=== PATIENT | male | born 1985 | race Caucasian/White ===

== ENCOUNTER 2019-08-08 06:25 | Inpatient (IN) | payer SELFPAY ==
[2019-08-08] VITALS (77 sets, daily range): BP systolic 53–164; BP diastolic 21–91; PULSE 56–122; RESP 9–25; TEMP 36.8–37.3; O2SAT 83–100
--- NOTE | 2019-08-08 | DI.US_ITS ---
EXAM: US ABDOMEN INDICATION: RUQ pain, elevated LFTs COMPARISON: No exams were available for comparison TECHNIQUE: Ultrasound abdomen performed using standard protocol FINDINGS: Abdominal ultrasound was performed according to the usual protocol. The liver is normal in size and shape. No focal hepatic lesion seen. There is no evidence of cholelithiasis or biliary dilatation. No gallbladder wall thickening or peric holecystic fluid collection. Pancreas appears intact as visualized. Spleen is unremarkable in appearance with no focal lesion. Kidneys are normal in size and shape. No renal mass, hydronephrosis, or nephrolithiasis. Abdominal aorta and IVC are of normal diameter. IMPRESSION: Negative abdominal ultrasound .
--- NOTE | 2019-08-08 | DI.RAD_ITS ---
EXAM: XR CHEST 2V PA LATERAL CLINICAL HISTORY: R rib pain TECHNIQUE: 2D digital imaging was performed. COMPARISON: No exams were available for comparison FINDINGS: The heart is not enlarged. The lungs are clear and well expanded. No pleural effusion seen. Mediastin al contours appear intact. IMPRESSION: Normal chest
--- NOTE | 2019-08-08 06:36 | ED.GENADUL_ITS ---
Discharge Plan Disposition Patient Disposition: [facility] INPATIENT Condition: Poor Discharge Details Chief Complaint: ETOHWithdr Clinical Impression: Alcohol withdrawal Primary Care Provider: None,None ED Provider: Kodi Teixeira Medical Decision Making Patient presenting with complaint of alcohol withdrawal and anxiety. Spent the night in the drunk tank at [facility]. Reports history of alcohol withdrawal seizures. Reportedly drinks a gallon of liquor a day. Hypertensive with tremor. Will initiate CIWA scoring. Patient requesting detox though I am not convinced he will follow through with this. IV established fluids started. Thiamine and folate ordered orally. 1 mg Ativan IV for now. Laboratory studies ordered. Attempt to obtain records from [place]. 7:30 - Patient scored up over 20 for CIWA and given a total of 2mg Ativan IV. Labs show normal CBC. Chemistries okay except low magnesium which is 1.3. Liver function was elevated transaminases and bilirubin consistent with alcohol abuse. Alcohol level is 0. Will repeat CIWA and dose appropriately. 8:00 -repeat CIWA score still over 20. Another 2 mg Ativan given. Case discussed with hospitalist. Patient accepted to ICU for alcohol withdrawal. Lab Data Lab results reviewed: Yes I reviewed the patient's lab results. ECG Data Attestation: I personally reviewed and interpreted this ECG (s) as follows: Prior ECG tracings: not available for review Interpretation: Undetermined rhythm. Probably sinus rhythm with ectopic atrial rhythm given 2 morphologically different P waves. Normal interval and axis. No ST changes. HPI General Mode of arrival: EMS . Date/Time Provider Initiated Documentation: 08/08/19 06:25 . Limitations to Documentation: no limitations . Information obtained by: patient and RN notes reviewed . HPI Narrative: Patient is brought in by EMS from [facility] with complaint of alcohol detox. Somehow, patient ended up in protective custody at the [facility]. He was apparently transported there by [place] [employer] after he left [facility]. Patient is not really clear on his recollection of the events from yesterday. States that he is homeless but does have a job. Drinks about a gallon of liquor a day. Denies drug use but has history of substance abuse. Has history of multiple prior detox and rehab admissions. Currently on no medications. Feeling very anxious and shaky. Reports history of withdrawal seizures. Has some bruising and scrapes but is not sure how they occurred. Denies fever, cough, chest pain, shortness of breath, abdominal pain. Related Data Allergies Allergy/AdvReac Type Severity Reaction Status Date / Time No Known Allergies Allergy Unverified 08/08/19 06:30 General Stated Complaint: ETOHWithdr NEPTALI: 2 Review of Systems Narrative: 11/27 Review of Systems completed and is negative except as stated above in HPI (Systems reviewed: Const, Eyes, ENT, Resp, CV, GI, , MSK, Skin, Neuro) [facility] Medical History (Updated 08/08/19 @ 08:03 by Kodi Texieira MD) Alcoh dep NEC/NOS, unspec (Chronic) Alcohol withdrawal seizure (Chronic) Depression (Chronic) Social History Smoking/Tobacco Use Status: Current-Occasional Tobacco Type: smokeless tobacco Alcohol Intake: current Alcohol Intake frequency: 3 or more drinks per day Drug use: Current Sobriety Substance use type: former substance user Exam Narrative Exam Narrative: Vitals: Afebrile. Hypertensive. Room air pulse ox normal. Const: WDWN male in NAD. HEENT: Normocephalic. Abrasion to bridge of nose. Eyes: PERRL and EOMI Neck: Supple. Trachea midline. Lungs: Normal respiratory effort. Cor: Good radial pulses. GI: Soft. NT/ND. No guarding or rebound. Neuro: A+O x 3. Normal speech, gait. Cranial nerves II - XII grossly intact. No gross motor or sensory deficit. Tremor present. Ext: No C/C/E. Skin: Warm and dry without rash. Course Vital Signs Vital signs: Vital Signs Temperature 98.4 F 08/08/19 06:26 Pulse 88 08/08/19 06:26 Respiratory Rate 16 08/08/19 06:26 Blood Pressure 146/79 H 08/08/19 06:26 Pulse Oximetry 96 08/08/19 06:26 Temperature 98.4 F 08/08/19 06:26 Temperature Source Skin 08/08/19 06:26 Pulse 88 08/08/19 06:26 Respiratory Rate 16 08/08/19 06:26 Respiratory Effort Non-Labored 08/08/19 06:32 Blood Pressure 146/79 H 08/08/19 06:26 Blood Pressure Position Sitting 08/08/19 06:26 Pulse Oximetry 96 08/08/19 06:26 Oxygen Delivery Method Room Air 08/08/19 06:26 Oxygen Flow Rate 0 08/08/19 06:26 Critical Care Time Critical Care Time Critical Care Time: Yes Total Critical Care Time: 60 Attestation: Upon my evaluation, this patient had a high probability of imminent or life- threatening deterioration, which required my direct attention, intervention, and personal management. I have personally provided minutes of critical care time exclusive of time spent on separately billable procedures. Time includes review of laboratory data, radiology results, discussion with consultants, and monitoring for potential decompensation. Interventions were performed as documented above.
[2019-08-08 06:55] LABS: Abs Immature Grans 0.01 k/cumm (0.0-0.09); Absolute Basophil Count 0.04 k/cumm (0.0-0.2); Absolute Eosinophil Count 0.03 k/cumm (0.0-0.7); Absolute Lymphocyte Count 0.83 k/cumm (1.2-3.4); Absolute Neutrophil Count 8.05 k/cumm (1.2-6.7); Basophils % 0.4; Eosinophils % 0.3; HCT 42.5 % (40.0-50.0); HGB 14.9 g/dL (13.5-17.5); Immature Grans % 0.1 %; Lymphocytes % 8.6; Mean Corp. HGB Concentration 35.1 g/dL (32.0-36.0); Mean Corpuscular Volume 85.5 fL (80-95); Mean Platelet Volume 9.2 fL (8.0-11.0); Monocytes % 7.2; Neutrophils % 83.4; Platelet Count 161 x1000/uL (130-400); RBC 4.97 m/cumm (4.50-6.00); RBC Distribution Width 12.7 % (11.8-14.1); White Blood Cell Count 9.66 k/cumm (4.4-10.8)
[2019-08-08] MEDS: Normal Saline 1,000 ML 1000 ML IV (06:59)
[2019-08-08] MEDS: LORazepam 2 MG/ML VIAL 1 MG IVP ×2 (07:00→07:10)
[2019-08-08] MEDS: Folic Acid 1 MG TAB PO (07:02)
[2019-08-08] MEDS: Thiamine 100 MG TAB PO (07:02)
[2019-08-08 07:08] LABS: ALT 159 U/L (16-63); AST 122 U/L (15-37); Alkaline Phosphatase 56 U/L (46-116); Anion Gap 12.7 mmol/L (3-11); BUN 17 mg/dL (7-18); Bilirubin, Total 4.4 mg/dL (0.2-1.0); CO2 26.3 mmol/L (21.0-32.0); CREATININE 0.92 mg/dL (0.70-1.30); Calcium 8.5 mg/dL (8.5-10.1); Chloride 99 mmol/L (98-107); Glucose 85 mg/dL (74-106); Lipase 91 U/L (73-393); Magnesium 1.3 mg/dL (1.8-2.4); Potassium 3.6 mmol/L (3.5-5.1); Sodium 138 mmol/L (136-145); Total Protein 6.9 g/dL (6.4-8.2)
[2019-08-08 07:15] LABS: ETHANOL BLOOD < 3.0 mg/dL (<3)
[2019-08-08] MEDS: MAGNESIUM SULFATE 2 GM/50 ML BAG IVPB ×2 (07:46→11:26)
[2019-08-08] MEDS: LORazepam 2 MG/ML VIAL IVP ×7 (08:02→23:30)
[2019-08-08 08:22] LABS: *AMPHETAMINES SCREEN URINE Negative (Negative); *BARBITURATES SCREEN URINE Negative (Negative); *BENZODIAZEPINES SCREEN URINE POSITIVE (Negative); Cannabinoids THC POSITIVE (Negative); Cocaine Screen,Urine Negative (Negative); METHADONE URINE SCREEN Negative (Negative); OPIATES URINE SCREEN Negative (Negative)
[2019-08-08 08:23] LABS: Tricyclic Antidepressants Negative (Negative)
[2019-08-08 09:11] LABS: Prothrombin Time 10.4 sec (9.3-11.0)
[2019-08-08] MEDS: Normal Saline 1,000 ML 150 ML IV ×3 (09:24→22:53)
--- NOTE | 2019-08-08 10:29 | HPE_ITS ---
Date of service: 08/08/19 Time of Service: 09:45 Assessment and Plan Assessment and plan (1) Alcohol withdrawal: Status: Acute Assessment and plan: Monitor in the ICU on CIWA with scheduled librium, PO/IV lorazepam, vitamins. Care management to work with patient on setting up a women's lacrosse coach and outp atient plan for recovery. (2) Closed head injury: Status: Acute Assessment and plan: Checking CT head (3) Rib pain on right side: Status: Acute Assessment and plan: Check CXR, RUQ, provide IS and lidocaine patches. 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 Replete lytes. Usually, a benign condition. (5) Anxiety: Status: Chronic Assessment and plan: Currently probably part of his alcohol withdrawal - however, will need to be reassessed once alcohol is out of his system. Would benefit from mental health follow up. (6) Depression: Status: Chronic Assessment and plan: As above (7) Transaminitis: Status: Acute Assessment and plan: Check hepatitis studies, US RUQ, INR (8) Hypomagnesemia: Status: Acute Assessment and plan: Replete (9) Tobacco abuse: Status: Acute Assessment and plan: provide nicotine replacement (10) H/O intravenous drug use in remission: Status: Acute Assessment and plan: Check hepatitis studies and HIV (11) DVT prophylaxis: Status: Acute Assessment and plan: not required in an ambulatory 33 year old male (12) Discharge planning issues: Status: Acute Assessment and plan: Full code Admit to ICU. Total Critical Care Time 60 minutes. History of Present Illness History of Present Illness Chief Complaint: Alcohol withdrawal Narrative: Mr Macdonald is a 33 year old male with PMHx of alcohol abuse with h/o DTs and alcohol withdrawal seizures in the past, as well as h/o depression, anxiety, and PTSD, who left [facility] AMA yesterday (records are being obtained), who drank again last night and ended up being arrested and going to the drunk tank last night who was brought in to [facility] ED this morning with alcohol withdrawal with CIWA scores of >20, requiring IV ativan in the ED. Patient states that he usually requires scheduled librium for his withdrawal. He endorses wanting to q uit drinking and is interested in outpatient recovery program and would like to be set up with a women's lacrosse coach. He has participated in both inpatient and outpatients programs in the past. He endorses feeling depressed and, while he does not have a sucidal plan, he states that he is not sure that there is a point to living like this. He denies any exposures to known COVID-19 cases and always wears a mask. He reports falling at home and hitting his head. He has a headache and R lower rib pain. Review of Systems All systems reviewed & are unremarkable except as noted in HPI and below PFSH Medical History (Updated 08/08/19 @ 11:29 by Ivory Malone MD) Alcoh dep NEC/NOS, unspec (Chronic) Alcohol withdrawal seizure (Chronic) Anxiety (Chronic) Depression (Chronic) H/O intravenous drug use in remission (Acute) PTSD (post-traumatic stress disorder) (Acute) Surgical History (Updated 08/08/19 @ 10:44 by Ivory Malone MD) Status post open reduction and internal fixation (ORIF) of fracture (Chronic) tib/fib LLE Family History (Updated 08/08/19 @ 10:46 by Ivory Malone MD) Father Heart disease Paternal Grandfather Stroke Paternal Grandmother Stroke Maternal Aunt Cancer type unknown Social History (Updated 08/08/19 @ 10:51 by Ivory Malone MD) Smoking/Tobacco Use Status: Current-Occasional Tobacco Type: smokeless tobacco Tobacco: How many years used: 15 Smokeless tobacco user: chewing tobacco Quit status: considering quitting Counseling given: provider counseling Alcohol Intake: current Alcohol Intake frequency: 3 or more drinks per day Alcohol type: other Details: 1 gallon of vodka per day Drug use: Current Sobriety Substance use type: former substance user, marijuana, heroin, painkillers and IV drugs Meds Home Medications and Allergies Home Medications Medication Instructions Recorded Confirmed Type Unknown [No Known Home Meds] 08/08/19 08/08/19 History Allergies Allergy/AdvReac Type Severity Reaction Status Date / Time No Known Allergies Allergy Unverified 08/08/19 06:30 Exam Narrative Exam Narrative: General: Pleasant, cooperative, tearful male with abrasions on his nose, A&Ox3, initially falls asleep during the interview, but then is able to wake up and provide history Neurological: not visibly tremulous, no focal deficits Psychiatric: tearful; otherwise, appropriate speech pattern/content Skin: abrasions on nose. Otherwise, visible skin intact HEENT: Abrasions on nose; otherwise, atraumatic, normocephalic, EOMI, MMM, Clear oropharynx, no submandibular or cervical lymphadenopathy, no goiter or JVD Cardiovascular: RRR, no m/r/g Lungs: CTAB Gastrointestinal: soft, tender in R lower ribs, but not RUQ, nondistended, + BS Genitourinary: deferred Extremities: no e/c/c BLE's Results Imaging Additional studies: CT head, CXR, US RUQ ordered EKG: HR 72, ?wandering atrial pacemaker. Labs Result diagrams: 08/08/19 06:40 08/08/19 06:40 Labs: Laboratory Results - last 24 hr 08/08/19 08/08/19 08/08/19 06:40 06:40 08:05 WBC 9.66 RBC 4.97 Hgb 14.9 Hct 42.5 MCV 85.5 MCH 30.0 MCHC 35.1 RDW 12.7 Plt Count 161 MPV 9.2 Immature Gran % 0.1 Neutrophils % 83.4 Lymphocytes % 8.6 Monocytes % 7.2 Eosinophils % 0.3 Basophils % 0.4 Absolute Neutrophils 8.05 H Absolute Lymphocytes 0.83 L Absolute Monocytes 0.70 Absolute Eosinophils 0.03 Absolute Basophils 0.04 PT INR Sodium 138 Potassium 3.6 Chloride 99 Carbon Dioxide 26.3 Anion Gap 12.7 H BUN 17 Creatinine 0.92 Estimated GFR/1.73 m2 >= 60.00 Glucose 85 Calcium 8.5 Magnesium 1.3 L Total Bilirubin 4.4 H AST 122 H ALT 159 H Alkaline Phosphatase 56 Total Protein 6.9 Albumin 4.0 Lipase 91 Urine Opiates Screen Negative Urine Methadone Screen Negative Ur Barbiturates Screen Negative Ur Tricyclics Screen Negative Ur Amphetamines Screen Negative U Benzodiazepines Scrn Positive A Urine Cocaine Screen Negative Ur THC Screen Positive A Ethyl Alcohol < 3.0 08/08/19 08:45 WBC RBC Hgb Hct MCV MCH MCHC RDW Plt Count MPV Immature Gran % Neutrophils % Lymphocytes % Monocytes % Eosinophils % Basophils % Absolute Neutrophils Absolute Lymphocytes Absolute Monocytes Absolute Eosinophils Absolute Basophils PT 10.4 INR 1.0 Sodium Potassium Chloride Carbon Dioxide Anion Gap BUN Creatinine Estimated GFR/1.73 m2 Glucose Calcium Magnesium Total Bilirubin AST ALT Alkaline Phosphatase Total Protein Albumin Lipase Urine Opiates Screen Urine Methadone Screen Ur Barbiturates Screen Ur Tricyclics Screen Ur Amphetamines Screen U Benzodiazepines Scrn Urine Cocaine Screen Ur THC Screen Ethyl Alcohol Last Vital Signs Temp 36.9 C 08/08/19 09:03 Pulse 79 08/08/19 09:03 Resp 14 08/08/19 09:03 BP 138/58 L 08/08/19 09:03 Pulse Ox 98 08/08/19 09:03 COVID-19 Screening In the past 14 days, have you traveled outside of [place]?: NO Recent travel in the [facility] within the last 14 days?: No Recent out of the country travel within the last 14 days?: No Exposure or possible exposure to illness during travel?: No Had IN PERSON contact w/suspected or confirmed C-19 person: No Have you had the following symptoms in the past few days?: No
[2019-08-08] MEDS: Multivitamin TAB 1 TAB PO (10:56)
[2019-08-08] MEDS: chlordiazePOXIDE 25 MG CAP PO ×3 (11:05→17:15)
--- NOTE | 2019-08-08 11:33 | NUR.NOTE ---
Patient given 2mg of Ativan IVP for CIWA score of 10.Nursing Note:
--- NOTE | 2019-08-08 14:05 | NUR.NOTE ---
Patient undergoing abdominal ultrasound in room.Nursing Note:
[2019-08-08] MEDS: Lidocaine 5% Patch 1 PATCH TP (14:29)
[2019-08-08] MEDS: Nicotine 2 MG GUM CH ×7 (14:30→22:53)
--- NOTE | 2019-08-08 15:15 | DI.CT_ITS ---
EXAM: CT HEAD WO CLINICAL HISTORY: headache, trauma. TECHNIQUE: Imaging Protocol: Axial computed tomography images with coronal and sagittal reformatted images were created and reviewed COMPARISON: No exams were available for comparison FINDINGS: The ventricular system is normal in appearance. No evidence of acute intracranial hemorrhage, mass effect, or midline shift. The orbital structures are unremarkable. The temporal bone structures appear intact. Calvarium: Normal. Visualized Paranasal sinuses/Mastoids: Clear. IMPRESSION: Normal cranial CT. RADIATION DOSE DELIVERED: 733.95mGy.cm Total DLP DATA REPOSITORY: All CT scans at this facility are submitted to the National Radiology Data Registry (NRDR) Dose Index Registry (DIR) with the [employer] (A[employer]). RADIATION OPTIMIZATION: All CT scans at this facility use at least one of these dose optimization te chniques: automated exposure control; mA and/or kV adjustment per patient size (includes targeted exa ms where dose is matched to clinical indication); or iterative reconstruction.
[2019-08-08] MEDS: Normal Saline Flush 10 ML SYR IVP ×3 (16:26→22:44)
[2019-08-08] MEDS: Acetaminophen 325 MG TAB PO (17:15)
[2019-08-08 19:49] LABS: Bilirubin Negative (Negative); Blood Trace-intact (Negative); Clarity Clear (Clear); Glucose Negative (Negative); Ketones 15 mg/dL (Negative); Leukocyte Esterase Negative (Negative); Nitrite Negative (Negative); pH 7.5 (5-8)
[2019-08-08] MEDS: chlordiazePOXIDE 25 MG CAP 50 MG PO (19:54)
[2019-08-08 20:16] LABS: Bacteria Negative HPF (Negative); C & S Indicated? No; Casts Negative LPF (Negative); Crystals Negative HPF (Negative); Epithelial Cells Negative HPF (Negative); Mucus Negative (Negative); Other Cells Negative (Negative); RBC 0-2 HPF (0-2); WBC 0-2 HPF (0-5)
[2019-08-08] MEDS: diazePAM 10 MG/2 ML SYR IVP ×2 (21:18→22:42)
--- NOTE | 2019-08-08 23:37 | NUR.NOTE ---
Nursing Note: Patient wanted it noted that he received services at [facility] between March and May of 2017. He states that he was diagnosed with Major Depressive Disorder and severe anxiety. He states that he does not want to drink anymore. He wonders if his records on file there have relevance for this admission.
[2019-08-09] VITALS (14 sets, daily range): BP systolic 123–136; BP diastolic 64–78; PULSE 54–98; RESP 9–25; TEMP 36.9; O2SAT 96
[2019-08-09] MEDS: diazePAM 10 MG/2 ML SYR IVP ×6 (00:30→06:25)
[2019-08-09] MEDS: LORazepam 1 MG TAB PO/SL ×2 (03:10→04:57)
[2019-08-09] MEDS: Acetaminophen 325 MG TAB PO (03:10)
[2019-08-09] MEDS: LORazepam 2 MG/ML VIAL IVP (04:03)
[2019-08-09] MEDS: Normal Saline 1,000 ML 150 ML IV (05:53)
[2019-08-09] MEDS: chlordiazePOXIDE 25 MG CAP 50 MG PO (06:26)
[2019-08-09 07:02] LABS: Abs Immature Grans 0.01 k/cumm (0.0-0.09); Absolute Basophil Count 0.01 k/cumm (0.0-0.2); Absolute Eosinophil Count 0.04 k/cumm (0.0-0.7); Absolute Lymphocyte Count 0.72 k/cumm (1.2-3.4); Absolute Monocyte Count 0.47 k/cumm (0.11-0.7); Basophils % 0.2; Eosinophils % 0.7; HGB 14.5 g/dL (13.5-17.5); Immature Grans % 0.2 %; Lymphocytes % 12.7; Mean Corp. HGB Concentration 34.5 g/dL (32.0-36.0); Mean Corpuscular Hemoglobin 29.4 pg (27.0-33.0); Mean Corpuscular Volume 85.2 fL (80-95); Mean Platelet Volume 9.7 fL (8.0-11.0); Monocytes % 8.3; Neutrophils % 77.9; Platelet Count 138 x1000/uL (130-400); RBC 4.93 m/cumm (4.50-6.00); RBC Distribution Width 12.2 % (11.8-14.1); White Blood Cell Count 5.68 k/cumm (4.4-10.8)
[2019-08-09 07:07] LABS: Absolute Neutrophil Count 4.42 k/cumm (1.2-6.7)
[2019-08-09 07:10] LABS: ALT 253 U/L (16-63); AST 187 U/L (15-37); Albumin 3.9 g/dL (3.4-5.0); Alkaline Phosphatase 60 U/L (46-116); Anion Gap 7.6 mmol/L (3-11); BUN 6 mg/dL (7-18); Bilirubin, Direct 0.29 mg/dL (0.00-0.20); Bilirubin, Total 4.8 mg/dL (0.2-1.0); CO2 28.4 mmol/L (21.0-32.0); CREATININE 0.84 mg/dL (0.70-1.30); Calcium 8.4 mg/dL (8.5-10.1); Chloride 103 mmol/L (98-107); Glucose 100 mg/dL (74-106); Magnesium 1.8 mg/dL (1.8-2.4); Potassium 3.2 mmol/L (3.5-5.1); Sodium 139 mmol/L (136-145); TSH (W/Ref FT4) 1.65 uIU/mL (0.36-3.74); Total Protein 6.7 g/dL (6.4-8.2)
[2019-08-09 07:47] LABS: Folate 17.7 ng/mL (8.6-20.0); Vitamin B12 1046 pg/mL (193-986)
[2019-08-09] MEDS: Thiamine 100 MG TAB PO (08:07)
[2019-08-09] MEDS: Potassium Chloride 20 MEQ TABCR 40 MEQ PO (08:08)
[2019-08-09] MEDS: Multivitamin TAB 1 TAB PO (08:08)
[2019-08-09 08:26] LABS: COVID-19 RT-PCR UVMMC Result Negative (Negative)
--- NOTE | 2019-08-09 08:44 | NUR.NOTE ---
0800 Pt expressing desire to leave AMA, despite being temporarily homeless, according to the pt. He is dressed and anxious, d/w pt the possible ramnifications of leaving AMA, but he has persisted in wanting to go. Dr. Malone notified, orders to replace potassium recieved. personal lines account manager, Rox, gave pt pamphlets for community resources. 0830pt signed AMA paperwork, iv removed and he was escorted to the lobby.
--- NOTE | 2019-08-09 12:11 | DSE_ITS ---
Date of service: 08/09/19 Time of Service: 08:00 DS: Diagnosis Discharge Diagnosis (1) Alcohol withdrawal: Status: Acute (2) Closed head injury: Status: Acute (3) Rib pain on right side: Status: Acute (4) Wandering atrial pacemaker by electrocardiogram: Status: Resolved (5) Anxiety: Status: Chronic (6) Depression: Status: Chronic (7) Transaminitis: Status: Acute (8) Hypomagnesemia: Status: Acute (9) Hypokalemia: Status: Acute (10) Tobacco abuse: Status: Chronic (11) H/O intravenous drug use in remission: Status: Resolved (12) COVID-19 ruled out by laboratory testing: Status: Acute Discharge Plan Disposition Patient Disposition: AGAINST MEDICAL ADVICE Condition: Fair Discharge Details Chief Complaint: ETOHWithdr Clinical Impression: Alcohol withdrawal Reason For Visit: ALCOHOL WITHDRAWAL Admit Date/Time: 08/08/19 08:03 Admit Provider: Ivory Malone Attending Provider: Ivory Malone Primary Care Provider: None,None ED Provider: Kodi Teixeira [facility] Hospital Course: Mr Macdonald is a 33 year old male who was a patient on [facility] ICU under hospitalist service from 08/08/2019-08/09/2019 for alcohol withdrawal prior to leaving [place]. He was treated with scheduled librium and prn IV ativan. His magnesium and potassiu m were repleted. Because he had reported a fall and had evidence of nasal abrasions and pain in his right ribs, he had imaging done - negative CT of the head, CXR, and US RUQ. He was advised not to leave and was able to verbalize understanding that alcohol withdrawal can cause seizures (as it has in him in the past) and could result in . He was given resources on substance abuse treatment in the area by care management prior to leaving [place] on 08/09/2019. Home Meds and New Rx's Prescriptions: No Action No Known Home Meds RF: 0 Discharge Orders Discharge Orders: Discharge Order (Routine); Ordered 08/09/19 Ordered By: Ivory Malone Discharge Data Discharge Date/Time-TO BE ENTERED AT DEPARTURE: 08/09/19 08:30 Discharge Comment: AMA DS: Summary Status at Discharge Functional status at discharge: independent ambulation Overall status at discharge: patient is not back to baseline Mental Status: other (anxious) Speech and Movement: speech and movement normal Mood: other (anxious) Affect: labile affect Exam Narrative Exam Narrative: General: Pleasan male, tremulous but A&Ox3 when I saw him and able to make his own decisions HEENT: EOMI, MMM Heart: not auscultated Lungs: unlabored breathing; not auscultated Abdomen: nondistended Extremities: no edema Psych Mental Status: other (anxious) Speech and Movement: speech and movement normal Mood: other (anxious) Affect: labile affect DS: Data Vitals/I&O Vitals and I&O: Vital Signs Temperature 36.9 C 08/09/19 04:00 Temperature Source Temporal Artery Scan 08/09/19 04:00 Pulse 98 H 08/09/19 04:00 Pulse 83 08/09/19 07:00 Respiratory Rate 18 08/09/19 07:00 Respiratory Effort 08/09/19 08:00 Respiratory Depth Normal 08/09/19 08:00 Respiratory Pattern Normal 08/09/19 08:00 Blood Pressure 123/64 08/09/19 04:00 Blood Pressure Mean 78 08/09/19 04:00 Blood Pressure Position Supine 08/08/19 10:30 Pulse Oximetry 96 08/09/19 04:00 Oxygen Delivery Method Room Air 08/08/19 20:00 Oxygen Flow Rate 0 08/08/19 20:00 Pain Level 0 08/09/19 08:49 Intake & Output 08/08/19 08/09/19 08/09/19 23:59 11:59 23:59 Intake Total 3282.5 / 4332.5 2685.0 / 2685.0 Output Total 2450 / 2450 2450 / 2450 Balance 832.5 / 1882.5 235.0 / 235.0 Weight 85.4 kg Intake: IV 1842.5 / 2892.5 2685.0 / 2685.0 Oral 1440 / 1440 Output: Urine 2450 / 2450 2450 / 2450 Other: Urine Color Yellow Yellow Urine Appearance Clear Clear Urine Odor None Comment Frequent voids in urinal comprised of multiple voids Stool Occult Blood Negative Stool Size Large Stool Characteristics Soft Formed Voiding Methods Urinal Urinal Data Completed and Pending Completed studies during hospitalization [Text1]: CT head: Normal cranial CT. CXR; Normal chest US abdomen: Negative abdominal ultrasound . Labs on day of discharge: Labs from last 24 hours 08/09/19 08/09/19 08/09/19 06:10 06:10 06:10 WBC RBC Hgb Hct MCV MCH MCHC RDW Plt Count MPV Immature Gran % Neutrophils % Lymphocytes % Monocytes % Eosinophils % Basophils % Absolute Neutrophils Absolute Lymphocytes Absolute Monocytes Absolute Eosinophils Absolute Basophils PT 10.0 INR 1.0 Sodium Potassium Chloride Carbon Dioxide Anion Gap BUN Creatinine Estimated GFR/1.73 m2 Glucose Calcium Magnesium Total Bilirubin Conjugated Bilirubin AST ALT Alkaline Phosphatase Total Protein Albumin Vitamin B12 Folate TSH Urine Color Urine Clarity Urine pH Ur Specific Amagon Urine Protein Urine Ketones Urine Blood Urine Nitrite Urine Bilirubin Urine Urobilinogen Ur Leukocyte Esterase Urine RBC Urine WBC Ur Epithelial Cells Urine Crystals Urine Bacteria Urine Casts Urine Mucus Urine Other Ur Culture Indicated? Urine Glucose COVID-19 PCR Nasopharyn COVID-19 PCR Hep Bs Antigen Pending Hep Bs Antibody Pending Hep Bs Antibody, Quant Pending Hep B Core Total Ab Pending Hepatitis C Antibody Pending HIV 1&2 Ag/Ab, 4th Gen Pending Ref Test Perform Site 08/09/19 08/09/19 08/08/19 06:10 06:10 18:00 WBC 5.68 D RBC 4.93 Hgb 14.5 Hct 42.0 MCV 85.2 MCH 29.4 MCHC 34.5 RDW 12.2 Plt Count 138 MPV 9.7 Immature Gran % 0.2 Neutrophils % 77.9 Lymphocytes % 12.7 Monocytes % 8.3 Eosinophils % 0.7 Basophils % 0.2 Absolute Neutrophils 4.42 Absolute Lymphocytes 0.72 L Absolute Monocytes 0.47 Absolute Eosinophils 0.04 Absolute Basophils 0.01 PT INR Sodium 139 Potassium 3.2 L Chloride 103 Carbon Dioxide 28.4 Anion Gap 7.6 BUN 6 L Creatinine 0.84 Estimated GFR/1.73 m2 >= 60.00 Glucose 100 Calcium 8.4 L Magnesium 1.8 Total Bilirubin 4.8 H Conjugated Bilirubin 0.29 H AST 187 H ALT 253 H Alkaline Phosphatase 60 Total Protein 6.7 Albumin 3.9 Vitamin B12 1046 H Folate 17.7 TSH 1.65 Urine Color Yellow Urine Clarity Clear Urine pH 7.5 Ur Specific [place] 1.020 Urine Protein Negative Urine Ketones 15 H Urine Blood Trace-intact H Urine Nitrite Negative Urine Bilirubin Negative Urine Urobilinogen 2.0 H Ur Leukocyte Esterase Negative Urine RBC 0-2 Urine WBC 0-2 Ur Epithelial Cells Negative Urine Crystals Negative Urine Bacteria Negative Urine Casts Negative Urine Mucus Negative Urine Other Negative Ur Culture Indicated? No Urine Glucose Negative COVID-19 PCR Nasopharyn COVID-19 PCR Hep Bs Antigen Hep Bs Antibody Hep Bs Antibody, Quant Hep B Core Total Ab Hepatitis C Antibody HIV 1&2 Ag/Ab, 4th Gen Ref Test Perform Site 08/08/19 12:00 WBC RBC Hgb Hct MCV MCH MCHC RDW Plt Count MPV Immature Gran % Neutrophils % Lymphocytes % Monocytes % Eosinophils % Basophils % Absolute Neutrophils Absolute Lymphocytes Absolute Monocytes Absolute Eosinophils Absolute Basophils PT INR Sodium Potassium Chloride Carbon Dioxide Anion Gap BUN Creatinine Estimated GFR/1.73 m2 Glucose Calcium Magnesium Total Bilirubin Conjugated Bilirubin AST ALT Alkaline Phosphatase Total Protein Albumin Vitamin B12 Folate TSH Urine Color Urine Clarity Urine pH Ur Specific Amagon Urine Protein Urine Ketones Urine Blood Urine Nitrite Urine Bilirubin Urine Urobilinogen Ur Leukocyte Esterase Urine RBC Urine WBC Ur Epithelial Cells Urine Crystals Urine Bacteria Urine Casts Urine Mucus Urine Other Ur Culture Indicated? Urine Glucose COVID-19 PCR Negative Nasopharyn COVID-19 PCR Not Applicable Hep Bs Antigen Hep Bs Antibody Hep Bs Antibody, Quant Hep B Core Total Ab Hepatitis C Antibody HIV 1&2 Ag/Ab, 4th Gen Ref Test Perform Site [facility] lab PFSH Medical History (Updated 08/09/19 @ 12:12 by Ivory Malone MD) Alcoh dep NEC/NOS, unspec (Chronic) Alcohol withdrawal seizure (Chronic) Anxiety (Chronic) Depression (Chronic) H/O intravenous drug use in remission (Resolved) PTSD (post-traumatic stress disorder) (Acute) Surgical History (Updated 08/08/19 @ 10:44 by Ivory Malone MD) Status post open reduction and internal fixation (ORIF) of fracture (Chronic) tib/fib LLE Family History (Updated 08/08/19 @ 10:46 by Ivory Malone MD) Father Heart disease Paternal Grandfather Stroke Paternal Grandmother Stroke Maternal Aunt Cancer type unknown Social History (Updated 08/08/19 @ 10:51 by Ivory Malone MD) Smoking/Tobacco Use Status: Current-Occasional Tobacco Type: smokeless tobacco Tobacco: How many years used: 15 Smokeless tobacco user: chewing tobacco Quit status: considering quitting Counseling given: provider counseling Alcohol Intake: current Alcohol Intake frequency: 3 or more drinks per day Alcohol type: other Details: 1 gallon of vodka per day Drug use: Current Sobriety Substance use type: former substance user, marijuana, heroin, painkillers and IV drugs
[2019-08-10 11:39] LABS: HBs Antibody, Qual Positive (See Note); HBs Antibody, Quant 33.6 mIU/mL (See Note); HIV-1/2 Ag & Ab Screen Negative (Negative); Hepatitis B Core Antibody Negative (Negative); Hepatitis B surface Ag Negative (Negative); Hepatitis C Ab w Rflx HCV PCR Negative (Negative)
== END 2019-08-09 08:30 | disposition left against medical advice (07) | DRG 894 ==
LOC: ER 08:16 → ICU 08:47
PROVIDERS: Admitting Provider Internal Medicine; Emergency Provider Emergency Medicine; Visit Provider Internal Medicine
DX: F10.239 Alcohol dependence with withdrawal, unspecified (principal); S09.90XA Unspecified injury of head, initial encounter; E83.42 Hypomagnesemia; F32.9 Major depressive disorder, single episode, unspecified; F41.9 Anxiety disorder, unspecified; Z59.0 Homelessness; Z72.0 Tobacco use; I49.8 Other specified cardiac arrhythmias; R74.0 Nonspecific elevation of levels of transaminase and lactic acid dehydrogenase [LDH]; F43.10 Post-traumatic stress disorder, unspecified; W19.XXXA Unspecified fall, initial encounter; F11.11 Opioid abuse, in remission; F12.11 Cannabis abuse, in remission; E87.6 Hypokalemia; Z11.59 Encounter for screening for other viral diseases
CPT/HCPCS: 36415; 80048; 80053; 80076; 80307; 83690; 86704; 86706; 86803; 87340; 87389; 93005; 96361; 96365; 96375; 99238; 99291; U0003; 70450; 71046; 76700; 80320; 81003; 81015; 82607; 82746; 83735; 84443; 85025; 85610; 93010; J2060; J3360

== ENCOUNTER 2019-10-02 04:03 | Emergency (ER) | payer MEDICAID, SELFPAY ==
[2019-10-02 04:08] VITALS: BP 145/91; PULSE 97; RESP 16; TEMP 36.8; O2SAT 93
--- NOTE | 2019-10-02 04:14 | W.ED.GENAD ---
Discharge Plan Disposition Patient Disposition: HOME Condition: Good Discharge Details Chief Complaint: ETOHWithdr Clinical Impression: Acute alcoholic gastritis, Alcohol withdrawal Primary Care Provider: None,None ED Provider: Yony Pitts Home Meds and New Rx's Prescriptions: New ondansetron HCl [Zofran] 4 mg tablet 4 mg PO Q8H Qty: 12 RF: 0 sucralfate [Carafate] 1 gram tablet 1 gm PO QACHS Qty: 20 RF: 0 omeprazole 40 mg capsule,delayed release(DR/EC) 40 mg PO DAILY Qty: 20 RF: 0 No Action methadone 40 mg Tablet,Soluble 85 mg PO DAILY RF: 0 Discharge Instructions Instructions: Gastritis (ED), Alcohol Withdrawal (ED) Additional Instructions: At this time you likely have irritation to your stomach secondary to your alcohol intake. Please take the Carafate, and omeprazole to help decrease irritation in your stomach. Please take the Zofran as needed for nausea. If you notice any worsening of your symptoms, or any new symptoms such as vomiting, diarrhea, fever, chills, shortness of breath, chest pain, numbness, weakness, or fainting , please return immediately to the emergency department for reevaluation. Please follow up with your primary care provider as soon as possible for reassessment and reevaluation. As always, it was a pleasure participating in your medical care today. Medical Decision Making 34-year-old male with a past medical history of chronic alcoholism, depression, current methadone use, PTSD, presents today for evaluation of alcohol withdrawals and vomiting. Patient states that he at his worst easily drinks half a gallon of alcohol a day. States he stopped drinking alcohol about 24 hours ago, he feels notably jittery, feels that his mind is not in the right place. Since he stopped drinking he has vomited multiple times and cannot keep anything down. He denies any blood in his vomit, he denies any dark or tarry stools. He does state that he has had problems coming off alcohol in the past. He denies any auditory or visual hallucinations. He denies any IV or illicit drug use. He has no other complaints at this time. Exam demonstrates notably dry mucous membranes, nontender nonsurgical abdomen, mild jitter and anxiousness. Signs and symptoms clinically consistent with mild alcoholic gastritis, and mild withdrawal. We will give a very small dose of medically necessary Ativan, Protonix, 2 L of fluid, GI cocktail and Zofran. We will get basic screening labs. Signs and symptoms at this time inconsistent with true DTs, no indication for admission. 5:58 AM Patient is doing much better after rehydration, patient is sleeping calmly, laboratory work-up is negative, electrolytes stable, minimal anion gap at 12.9 to corrected with fluids. Lipase normal. Patient stable for discharge. We did give the patient recommendations to follow-up with his recovery coaches. We will place a referral for him. We will prescribe Carafate and omeprazole for home use for gastritis secondary to alcohol use. I have extensively reviewed the treatment plan and discharge instructions with the patient. I have addressed all patient concerns at this time. The patient was made aware of what symptoms to monitor for that would warrant a return to the emergency department. Discussed the plan with the patient, they demonstrate verbal understanding and agreement with our assessment and plan at this time. HPI General Date/Time Provider Initiated Documentation: 10/02/19 04:05. HPI Narrative: 34-year-old male with a past medical history of chronic alcoholism, depression, current methadone use, PTSD, presents today for evaluation of alcohol withdrawals and vomiting. Patient states that he at his worst easily drinks half a gallon of alcohol a day. States he stopped drinking alcohol about 24 hours ago, he feels notably jittery, feels that his mind is not in the right place. Since he stopped drinking he has vomited multiple times and cannot keep anything down. He denies any blood in his vomit, he denies any dark or tarry stools. He does state that he has had problems coming off alcohol in the past. He denies any auditory or visual hallucinations. He denies any IV or illicit drug use. He has no other complaints at this time. Related Data Home Medications Medication Instructions Recorded Confirmed methadone 85 mg PO DAILY 10/02/19 10/02/19 omeprazole 40 mg PO DAILY #20 cap 10/02/19 ondansetron HCl [Zofran] 4 mg PO Q8H #12 tab 10/02/19 sucralfate [Carafate] 1 gm PO QACHS #20 tab 10/02/19 Previous Rx's Medication Instructions Recorded omeprazole 40 mg PO DAILY #20 cap 10/02/19 ondansetron HCl [Zofran] 4 mg PO Q8H #12 tab 10/02/19 sucralfate [Carafate] 1 gm PO QACHS #20 tab 10/02/19 Allergies Allergy/AdvReac Type Severity Reaction Status Date / Time No Known Allergies Allergy Unverified 08/08/19 06:30 General Stated Complaint: ETOHWithdr NEPTALI: 3 Review of Systems All systems reviewed & are unremarkable except as noted in HPI and below PFSH Medical History Alcoh dep NEC/NOS, unspec (Chronic) Alcohol withdrawal seizure (Chronic) Anxiety (Chronic) Depression (Chronic) H/O intravenous drug use in remission (Resolved) PTSD (post-traumatic stress disorder) (Acute) Surgical History Status post open reduction and internal fixation (ORIF) of fracture (Chronic) tib/fib LLE Family History Father Heart disease Paternal Grandfather Stroke Paternal Grandmother Stroke Maternal Aunt Cancer type unknown Social History Smoking/Tobacco Use Status: Current-Occasional Tobacco Type: smokeless tobacco Tobacco: How many years used: 15 Smokeless tobacco user: chewing tobacco Quit status: considering quitting Counseling given: provider counseling Alcohol Intake: current Alcohol Intake frequency: 3 or more drinks per day Alcohol type: other Details: 1 gallon of vodka per day Drug use: Current Sobriety Substance use type: former substance user, marijuana, heroin, painkillers and IV drugs Do you feel safe at home: Yes Do you feel safe in your relationship?: Yes Exam Narrative Exam Narrative: 1.Const: Well-nourished, Well-developed, appearing stated age 2.Eyes: PERRL, no conjunctival injection, and symmetrical lids. 3.ENT: Atraumatic external nose and ears. Notably dry MM. Neck: Symmetric, trachea midline, No thyromegaly. 4.CVS: +S1/S2, No murmurs or gallops. Peripheral pulses 2+ and equal in all extremities. Brisk capillary refill in all extremities. 5.RESP: Unlabored respiratory effort. Clear to auscultation bilaterally. No wheezes rales or rhonchi 6.GI: Soft, Nontender/Nondistended, No hepatosplenomegaly. No guarding or rebound. 7.MSK: Normocephalic/Atraumatic, Extremities w/o deformity or ttp No cyanosis or clubbing, Normal movement of all extremities 8.Skin: Warm, Dry. No rashes or lesions. 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 Sensation grossly intact, no focal neurologic deficits. Jittery, mildly tremulous. 10.Psych: (AAO) x3. Appropriate mood and affect Course Vital Signs Vital signs: Vital Signs Temperature 36.8 C 10/02/19 04:08 Pulse 97 H 10/02/19 04:08 Respiratory Rate 16 10/02/19 04:08 Blood Pressure 145/91 H 10/02/19 04:08 Pulse Oximetry 93 L 10/02/19 04:08 Temperature 36.8 C 10/02/19 04:08 Temperature Source Skin 10/02/19 04:08 Pulse 97 H 10/02/19 04:08 Respiratory Rate 16 10/02/19 04:08 Respiratory Effort 10/02/19 04:10 Respiratory Pattern Normal 10/02/19 04:10 Blood Pressure 145/91 H 10/02/19 04:08 Blood Pressure Position Sitting 10/02/19 04:08 Pulse Oximetry 93 L 10/02/19 04:08 Oxygen Delivery Method Room Air 10/02/19 04:08 Oxygen Flow Rate 0 10/02/19 04:08
[2019-10-02] MEDS: Normal Saline 1,000 ML 1000 ML IV ×2 (04:28→05:34)
[2019-10-02] MEDS: LORazepam 2 MG/ML VIAL 0.5 MG IVP (04:28)
[2019-10-02] MEDS: Pantoprazole 40 MG VIAL IVP (04:28)
[2019-10-02] MEDS: Ondansetron 4 MG/2 ML VIAL IVP (04:29)
[2019-10-02 04:43] LABS: ALT 27 U/L (16-63); AST 25 U/L (15-37); Albumin 3.9 g/dL (3.4-5.0); Alkaline Phosphatase 48 U/L (46-116); Anion Gap 12.9 mmol/L (3-11); BUN 8 mg/dL (7-18); Bilirubin, Total 0.9 mg/dL (0.2-1.0); CO2 27.1 mmol/L (21.0-32.0); CREATININE 0.83 mg/dL (0.70-1.30); Calcium 8.4 mg/dL (8.5-10.1); Chloride 101 mmol/L (98-107); ETHANOL BLOOD 87.8 mg/dL (<3); Glucose 91 mg/dL (74-106); Lipase 239 U/L (73-393); Potassium 3.6 mmol/L (3.5-5.1); Sodium 141 mmol/L (136-145)
[2019-10-02 05:03] LABS: Abs Immature Grans 0.04 10^3/uL (0.0-0.06); Absolute Basophil Count 0.06 10^3/uL (0.0-0.2); Absolute Eosinophil Count 0.01 10^3/uL (0.0-0.7); Absolute Lymphocyte Count 1.55 10^3/uL (1.2-3.4); Absolute Monocyte Count 0.48 10^3/uL (0.1-0.8); Absolute Neutrophil Count 6.31 10^3/uL (1.2-6.7); Basophils % 0.7; Eosinophils % 0.1; HCT 43.4 % (40.0-50.0); HGB 14.3 g/dL (13.5-17.5); Immature Grans % 0.5; Lymphocytes % 18.3; MCHC 32.9 % (32.0-36.0); MPV 9.5 fL (8.0-11.0); Monocytes % 5.7; Neutrophils % 74.7; Nucleated RBC 0 %; Platelet Count 196 10^3/uL (130-400); RBC 4.77 10^6/uL (4.36-5.78); RDW 13.1 % (11.8-14.1); RDW-SD 44.3 fL; WBC 8.45 10^3/uL (4.4-10.8)
[2019-10-02 05:56] VITALS: PULSE 78; RESP 17; O2SAT 97
[2019-10-02 06:44] VITALS: BP 137/63; PULSE 87; RESP 16; TEMP 36.7; O2SAT 97
== END 2019-10-02 06:35 | disposition home or self-care (01) ==
PROVIDERS: Emergency Provider Student in an Organized Health Care Education/Training Program
DX: K29.20 Alcoholic gastritis without bleeding (principal); F10.239 Alcohol dependence with withdrawal, unspecified; Y90.4 Blood alcohol level of 80-99 mg/100 ml; R11.2 Nausea with vomiting, unspecified; E86.0 Dehydration; F41.8 Other specified anxiety disorders
CPT/HCPCS: 36415; 80053; 83690; 96361; 96374; 96375; 99284; 80320; 85025; J2060; J2405

== ENCOUNTER 2019-10-05 22:31 | Emergency (ER) | payer MEDICAID, SELFPAY ==
[2019-10-05 22:36] VITALS: BP 142/88; PULSE 89; RESP 20; TEMP 36.7; O2SAT 100
--- NOTE | 2019-10-05 22:50 | W.ED.GENAD ---
Discharge Plan Disposition Patient Disposition: [facility] Condition: Stable Discharge Details Chief Complaint: ETOHWithdr Clinical Impression: Encounter for medical screening examination, Alcohol intoxication Primary Care Provider: None,None ED Provider: Yonathan Ghotra [place] Meds and New Rx's Prescriptions: Continued methadone 40 mg Tablet,Soluble 85 mg PO DAILY RF: 0 ondansetron HCl [Zofran] 4 mg tablet 4 mg PO Q8H Qty: 12 RF: 0 sucralfate [Carafate] 1 gram tablet 1 gm PO QACHS Qty: 20 RF: 0 omeprazole 40 mg capsule,delayed release(DR/EC) 40 mg PO DAILY Qty: 20 RF: 0 Discharge Instructions Instructions: Alcohol Intoxication (ED) Additional Instructions: At this time you have been offered a medical screening examination and no obvious medical emergency has been identified. You are currently asymptomatic. Please drink alcohol in moderation. Watch for new or worsening symptoms and return to the ER for any concerns. Once out of police custody I recommend contacting your primary care provider for prompt outpatient reevaluation Medical Decision Making 34-year-old gentleman who denies recent illness or trauma, no active medical complaints, presents in police custody for medical screening examination. His breath alcohol level was 303. Currently patient appears well, nontoxic, and is in no obvious signs of focal. At this time I see no medical emergency that would inhibit a medical screening examination. He is awake, alert, ambulates steadily, able to protect his airway without difficulty. Patient was encouraged to return to the ER for new or worsening symptoms otherwise contact his primary care provider when he is no longer in police custody. Medical Records Medical records reviewed: Yes I reviewed the patient's medical records. HPI General Mode of arrival: ambulatory (With police). Date/Time Provider Initiated Documentation: 10/05/19 22:35. Limitations to Documentation: no limitations. Information obtained by: patient and police. HPI Narrative: This is a 34-year-old gentleman who presents to the ER in police custody for a medical screening examination. Patient takes methadone daily. He reports a history of alcoholism however has only been occasionally drinking it recently. Did drink alcohol yesterday and today. His breath alcohol level was 303 requiring a mandatory medical screening examination prior to going to the corrections facility. He currently has no questions or concerns. Denies recent illness or trauma. He denies any drug use. He does report remote history of alcohol withdrawal seizure when he was drinking much more heavily. Related Data Home Medications Medication Instructions Recorded Confirmed methadone 85 mg PO DAILY 10/02/19 10/02/19 omeprazole 40 mg PO DAILY #20 cap 10/02/19 ondansetron HCl [Zofran] 4 mg PO Q8H #12 tab 10/02/19 sucralfate [Carafate] 1 gm PO QACHS #20 tab 10/02/19 Previous Rx's Medication Instructions Recorded omeprazole 40 mg PO DAILY #20 cap 10/02/19 ondansetron HCl [Zofran] 4 mg PO Q8H #12 tab 10/02/19 sucralfate [Carafate] 1 gm PO QACHS #20 tab 10/02/19 Allergies Allergy/AdvReac Type Severity Reaction Status Date / Time No Known Allergies Allergy Unverified 08/08/19 06:30 General Stated Complaint: ETOHWithdr NEPTALI: 4 Review of Systems Constitutional Constitutional: Denies fever(s), Denies headache(s) and Denies weakness ENT Ears, Nose, Mouth, and Throat: Denies headache(s) Cardiovascular Cardiovascular: Denies chest pain and Denies dyspnea Respiratory Respiratory: Denies cough and Denies dyspnea Gastrointestinal Gastrointestinal: Denies abdominal pain, Denies nausea and Denies vomiting Musculoskeletal Musculoskeletal: Denies numbness and Denies tingling Neurologic Neurologic: Denies headache(s), Denies numbness, Denies tingling and Denies weakness PFSH Medical History Alcoh dep NEC/NOS, unspec (Chronic) Alcohol withdrawal seizure (Chronic) Anxiety (Chronic) Depression (Chronic) H/O intravenous drug use in remission (Resolved) PTSD (post-traumatic stress disorder) (Acute) Surgical History Status post open reduction and internal fixation (ORIF) of fracture (Chronic) tib/fib LLE Family History Father Heart disease Paternal Grandfather Stroke Paternal Grandmother Stroke Maternal Aunt Cancer type unknown Social History Smoking/Tobacco Use Status: Current-Occasional Tobacco Type: smokeless tobacco Tobacco: How many years used: 15 Smokeless tobacco user: chewing tobacco Quit status: considering quitting Counseling given: provider counseling Alcohol Intake: current Alcohol Intake frequency: 3 or more drinks per day Alcohol type: other Details: 1 gallon of vodka per day Drug use: Current Sobriety Substance use type: former substance user, marijuana, heroin, painkillers and IV drugs Do you feel safe at home: Yes Do you feel safe in your relationship?: Yes Exam Const General: cooperative, healthy appearing, comfortable and no acute distress Orientation: alert, awake and oriented x3 HENMT Head: normal to inspection, normocephalic and atraumatic Mouth: moist mucous membranes Eyes General: appearance normal, both eyes and all related structures Alignment and Position: alignment normal Periorbital: periorbital findings normal Eyelids: eyelids normal Conjunctivae: conjunctivae normal Sclera: sclerae normal Cornea: corneas normal Pupils: PERRL EOM: EOM intact bilaterally Direct ophthalmoscopy: normal light reflex Neck Neck: normal visual inspection, full ROM, trachea midline and supple Resp Effort & Inspection: normal respiratory effort and able to speak in complete sentences Auscultation: clear to auscultation bilaterally Cardio Rate: regular rate Rhythm: regular rhythm GI Palpation: soft and nontender Back/Spine/Pelvis Back: No back tenderness Skin General skin exam: no rashes or lesions noted Neuro General: patient alert, patient awake, patient oriented x3, moves all extremities and no focal motor deficits Cranial Nerves: CN's II-XI intact bilaterally Cognition: normal cognition Speech: speech normal Gait: normal gait Motor: muscle tone normal throughout and strength 5/5 throughout Sensory Exam: no sensory deficits noted Extrem General: normal to inspection, full ROM and capillary refill normal Psych Appearance: grossly normal Mental Status: mental status grossly normal Course Vital Signs Vital signs: Vital Signs Temperature 36.7 C 10/05/19 22:36 Pulse 89 10/05/19 22:36 Respiratory Rate 10/05/19 22:36 Blood Pressure 142/88 H 10/05/19 22:36 Pulse Oximetry 100 10/05/19 22:36 Temperature 36.7 C 10/05/19 22:36 Temperature Source Tympanic 10/05/19 22:36 Pulse 89 10/05/19 22:36 Respiratory Rate 10/05/19 22:36 Respiratory Effort 10/05/19 22:39 Blood Pressure 142/88 H 10/05/19 22:36 Pulse Oximetry 100 10/05/19 22:36 Oxygen Delivery Method Room Air 10/05/19 22:36 Oxygen Flow Rate 0 10/05/19 22:36
== END 2019-10-05 22:55 | disposition home or self-care (01) ==
LOC: ER 22:56
PROVIDERS: Emergency Provider Physician Assistant
DX: F10.229 Alcohol dependence with intoxication, unspecified (principal); F11.20 Opioid dependence, uncomplicated
CPT/HCPCS: 99285; 99283

== ENCOUNTER 2019-10-06 12:48 | Emergency (ER) | payer MEDICAID, SELFPAY ==
--- NOTE | 2019-10-06 12:45 | RT.EKG_ITS ---
APPROVED REPORT Exam: Resting ECG Patient Location: E HR:79 bpm ECG Measurements Heart Rate 79 AXIS RI 157 P 66 QRSd 103 QRS 88 QT 414 T 42 QTc 475 Conclusion Sinus rhythm...normal P axis, V-rate 60- 99 I have reviewed and interpreted ECG and agree with software generated interpretation.
[2019-10-06 12:48] VITALS: BP 130/76; PULSE 81; RESP 18; TEMP 36.4; O2SAT 96
--- NOTE | 2019-10-06 13:08 | ED.GENADUL_ITS ---
Discharge Plan Disposition Patient Disposition: HOME Condition: Stable Discharge Details Chief Complaint: ETOHWithdr Clinical Impression: Alcohol withdrawal, Anxiety Primary Care Provider: None,None ED Provider: Rachel Elliott Home Meds and New Rx's Prescriptions: New chlordiazepoxide HCl 25 mg capsule 25 mg PO Q8H PRN (Reason: alcohol withdrawal) Qty: 7 RF: 0 No Action methadone 40 mg Tablet,Soluble 85 mg PO DAILY RF: 0 ondansetron HCl [Zofran] 4 mg tablet 4 mg PO Q8H Qty: 12 RF: 0 sucralfate [Carafate] 1 gram tablet 1 gm PO QACHS Qty: 20 RF: 0 omeprazole 40 mg capsule,delayed release(DR/EC) 40 mg PO DAILY Qty: 20 RF: 0 Discharge Instructions Instructions: Alcohol Withdrawal (ED), Anxiety (ED) Additional Instructions: Follow up with primary care provider in 3-5 days. Return to ED sooner if any worsening or concerns. Increase oral fluids. Take medications as prescribed. Take a Librium 3 times a day as needed the first day, 2 a day for the second day then 1 daily. Do not drink alcohol with medication. Discharge Data Discharge Date/Time-TO BE ENTERED AT DEPARTURE: 10/06/19 17:30 Medical Decision Making 34-year-old male presents via EMS for possible alcohol withdrawal. Patient was seen here yesterday for medical clearance was taken to the correctional facility. He states his last alcoholic drink was last night and he usually takes methadone which he did not receive this morning. He is complaining of tremors, foggy brain, seeing flashes of light, chest pressure and nausea, vomiting. Denies any hematochezia or hematemesis. Patient was seen here 5 days ago for mild alcohol withdrawal and was prescribed Zofran and Carafate, received fluids and lorazepam and Protonix. Patient does have a history of alcohol withdrawal and alcohol withdrawal seizures. He states he has gone to rehab in the past. 1354: Methadone dose confirmed by [facility] 85 mg daily. We will give patient's daily dose today since he has not had it. Patient has received banana bag 1 L, 1 mg of lorazepam IV, Zofran 4 mg IV. Patient has remained hemodynamically stable vital signs within normal limits no significant increase in heart rate or blood pressure to indicate active alcohol withdrawal. Initial CIWA score per medical staff assistant is approximately 3. Ethyl alcohol level is less than 3.0. At this time I do feel that patient's symptoms are a mixture of anxiety and mild alcohol withdrawal. Will prescribe a Librium taper for the next 3 days patient did speak with reading recovery teacher here in department and care management for follow- up care care management arranged a ride to [place]. I did speak with patient's who confirmed that his belongings are with [facility]. HPI General Mode of arrival: EMS . Date/Time Provider Initiated Documentation: 10/06/19 12:49 . Limitations to Documentation: no limitations . Information obtained by: patient . HPI Narrative: 34-year-old male presents via EMS for possible alcohol withdrawal. Patient was seen here yesterday for medical clearance was taken to the correctional facility. He states his last alcoholic drink was last night and he usually takes methadone which he did not receive this morning. He is complaining of tremors, foggy brain, seeing flashes of light, chest pressure and nausea, vomiting. Denies any hematochezia or hematemesis. Patient was seen here 5 days ago for mild alcohol withdrawal and was prescribed Zofran and Carafate, received fluids and lorazepam and Protonix. Patient does have a history of alcohol withdrawal and alcohol withdrawal seizures. He states he has gone to rehab in the past. Related Data Home Medications Medication Instructions Recorded Confirmed methadone 85 mg PO DAILY 10/02/19 10/06/19 omeprazole 40 mg PO DAILY #20 cap 10/02/19 10/06/19 ondansetron HCl [Zofran] 4 mg PO Q8H #12 tab 10/02/19 10/06/19 sucralfate [Carafate] 1 gm PO QACHS #20 tab 10/02/19 10/06/19 chlordiazepoxide HCl 25 mg PO Q8H PRN #7 cap 10/06/19 Previous Rx's Medication Instructions Recorded omeprazole 40 mg PO DAILY #20 cap 10/02/19 ondansetron HCl [Zofran] 4 mg PO Q8H #12 tab 10/02/19 sucralfate [Carafate] 1 gm PO QACHS #20 tab 10/02/19 chlordiazepoxide HCl 25 mg PO Q8H PRN #7 cap 10/06/19 Allergies Allergy/AdvReac Type Severity Reaction Status Date / Time No Known Allergies Allergy Unverified 10/06/19 12:55 General Stated Complaint: ETOHWithdr NEPTALI: 3 Review of Systems Narrative: Constitutional: Negative for weight loss, alert and oriented, well groomed, normal body habitus, appears anxious HEENT: Denies trauma, headaches, blurry vision, nasal discharge, sore throat, trouble swallowing. Reports seeing flashes of lights Chest: Denies chest pain, palpitations, irregular rhythm, hypertension. Reports chest pressure. Respiratory: Denies Shortness of breath, cough, hemoptysis. GI: Denies abdominal pain, diarrhea, constipation. Positive nausea vomiting. : Denies dysuria, hematuria, flank pain, rectal bleeding. Neuro: Denies dizziness, blurry vision, weakness, syncope, headache or facial numbness. Hematologic: Denies easy bruising, intolerance to heat or cold, hair loss. [facility] Medical History Alcoh dep NEC/NOS, unspec (Chronic) Alcohol withdrawal seizure (Chronic) Anxiety (Chronic) Depression (Chronic) H/O intravenous drug use in remission (Resolved) PTSD (post-traumatic stress disorder) (Acute) Surgical History Status post open reduction and internal fixation (ORIF) of fracture (Chronic) tib/fib LLE Family History Father Heart disease Paternal Grandfather Stroke Paternal Grandmother Stroke Maternal Aunt Cancer type unknown Social History Smoking/Tobacco Use Status: Current-Occasional Tobacco Type: smokeless tobacco Tobacco: How many years used: 15 Smokeless tobacco user: chewing tobacco Quit status: considering quitting Counseling given: provider counseling Alcohol Intake: current Alcohol Intake frequency: 3 or more drinks per day Alcohol type: other Details: 1 gallon of vodka per day Drug use: Occasionally Substance use type: former substance user, marijuana, heroin, painkillers and IV drugs Do you feel safe at home: Yes Do you feel safe in your relationship?: Yes Exam Narrative Exam Narrative: Constitutional: Alert and oriented x3. Appears stated age. Normal body habitus. Appears anxious. Head: Normocephalic, no trauma. Eyes: Pupils PERRLA, Red reflex noted, EOM's intact. Eyelids symmetrical without lesions, discharge, or swelling. ENT: Bilateral TM's WNL, External ear normal to inspection, no mastoid TTP, swelling, or erythema, Nasal turbinates WNL, no nasal discharge. Normal dentition, Posterior pharynx WNL, no exudate. Chest: RRR, Normal S1, S2, distal pulses intact. Resp: Lungs clear to auscultation bilaterally, no wheezes, rales, or rhonchi. Musculoskeletal: Normal gait, 5/5 strength to all four extremities. Positive tremors noted to upper and lower extremities. Skin: No suspicious rashes or lesions. Capillary refill less than 2 sec. Neurologic: Cranial nerves II-XII intact. Alert and oriented x 3. DTR's intact. Hematologic/Lymphatic: No ecchymosis, no lymphadenopathy. Course Vital Signs Vital signs: Vital Signs Temperature 36.4 C L 10/06/19 12:48 Pulse 81 10/06/19 12:48 Respiratory Rate 18 10/06/19 12:48 Blood Pressure 130/76 10/06/19 12:48 Pulse Oximetry 96 10/06/19 12:48 Temperature 36.4 C L 10/06/19 12:48 Temperature Source Temporal Artery Scan 10/06/19 12:48 Pulse 81 10/06/19 12:48 Respiratory Rate 18 10/06/19 12:48 Respiratory Effort Non-Labored 10/06/19 12:56 Respiratory Pattern Normal 10/06/19 12:56 Blood Pressure 130/76 10/06/19 12:48 Blood Pressure Position Supine 10/06/19 12:48 Pulse Oximetry 96 10/06/19 12:48 Oxygen Delivery Method Room Air 10/06/19 12:48 Oxygen Flow Rate 0 10/06/19 12:48
[2019-10-06 13:24] LABS: Abs Immature Grans 0.05 10^3/uL (0.0-0.06); Absolute Basophil Count 0.05 10^3/uL (0.0-0.2); Absolute Eosinophil Count 0.04 10^3/uL (0.0-0.7); Absolute Lymphocyte Count 1.12 10^3/uL (1.2-3.4); Absolute Monocyte Count 0.46 10^3/uL (0.1-0.8); Absolute Neutrophil Count 11.28 10^3/uL (1.2-6.7); Basophils % 0.4; Eosinophils % 0.3; HCT 48.5 % (40.0-50.0); Immature Grans % 0.4; Lymphocytes % 8.6; MCH 29.9 pg (27.0-33.0); MCV 90.7 fL (80-95); MPV 9.1 fL (8.0-11.0); Monocytes % 3.5; Neutrophils % 86.8; Nucleated RBC 0 %; Platelet Count 165 10^3/uL (130-400); RBC 5.35 10^6/uL (4.36-5.78); RDW-SD 43.2 fL
[2019-10-06] MEDS: LORazepam 2 MG/ML VIAL 1 MG IVP (13:35)
[2019-10-06] MEDS: Ondansetron 4 MG/2 ML VIAL IVP (13:35)
[2019-10-06 13:53] LABS: ALT 38 U/L (16-63); AST 21 U/L (15-37); Albumin 4.3 g/dL (3.4-5.0); Alkaline Phosphatase 50 U/L (46-116); Anion Gap 9.1 mmol/L (3-11); BUN 8 mg/dL (7-18); Bilirubin, Total 1.2 mg/dL (0.2-1.0); CO2 29.9 mmol/L (21.0-32.0); CREATININE 0.75 mg/dL (0.70-1.30); Calcium 9.2 mg/dL (8.5-10.1); Chloride 99 mmol/L (98-107); Glucose 90 mg/dL (74-106); Magnesium 1.8 mg/dL (1.8-2.4); Potassium 3.6 mmol/L (3.5-5.1); Sodium 138 mmol/L (136-145)
[2019-10-06 13:58] LABS: Troponin I < 0.05 ng/mL (<0.06)
[2019-10-06 14:04] LABS: ETHANOL BLOOD < 3.0 mg/dL (<3)
[2019-10-06] MEDS: MAGNESIUM SULFATE 8.12 MEQ, MULTIVITAMIN 10 ML, THIAMINE 100 MG, FOLIC ACID 1 MG in Nor... 168.867 MG IV (14:48)
[2019-10-06] MEDS: Methadone Liquid 10 MG/ML 85 MG PO (14:48)
[2019-10-06 15:22] LABS: Troponin I < 0.05 ng/mL (<0.06)
[2019-10-06 15:44] LABS: Bilirubin Negative (Negative); Blood Negative (Negative); Clarity Clear (Clear); Glucose Negative (Negative); Ketones Negative (Negative); Leukocyte Esterase Negative (Negative); Nitrite Negative (Negative); Specific Gravity 1.015 (1.005-1.025); pH 8.5 (5-8)
[2019-10-06 15:52] LABS: *AMPHETAMINES SCREEN URINE Negative (Negative); *BARBITURATES SCREEN URINE Negative (Negative); *BENZODIAZEPINES SCREEN URINE Negative (Negative); Cannabinoids THC POSITIVE (Negative); Cocaine Screen,Urine Negative (Negative); METHADONE URINE SCREEN POSITIVE (Negative); OPIATES URINE SCREEN Negative (Negative)
[2019-10-06 15:53] LABS: Tricyclic Antidepressants Negative (Negative)
[2019-10-06 16:03] LABS: Bacteria Negative HPF (Negative); Crystals Negative HPF (Negative); Epithelial Cells Few HPF (Negative); Mucus Trace (Negative); RBC 0-2 HPF (0-2); WBC 0-2 HPF (0-5)
[2019-10-06 16:04] LABS: C & S Indicated? No
[2019-10-06] MEDS: chlordiazePOXIDE 25 MG CAP PO (16:57)
--- NOTE | 2019-10-06 19:35 | CMPROGNOTE_ITS ---
- If Service Date Differs Date of service: 10/06/19 Time of Service: 19:35 Care Management Progress Note CM was paged to arrange transportation for Cristofer from the ED, as he was being discharged. He requested a ride to the [facility] prior to going to the [facility], which is where he is currently residing. JAYSHREE coordinated a ride with [facility] and sent an authorization for payment. Cristofer's mother offered to pay for the ride, but [facility] would not accept outside payment. Cristofer's mother's name is Darling Neal ([phone]). JAYSHREE discussed community resources with Cristofer. He spoke to a acid recovery operator while at [facility]. Nancy has reached out to him recently with no success. JAYSHREE explained that Nancy can help him with insurance, and he agreed to reach out to them. Cristofer's questions and concerns were addressed at the time of the visit.
--- NOTE | 2019-10-06 19:35 | PDOC.ERCMPRO ---
- If Service Date Differs Date of service: 10/06/19 Time of Service: 19:35 Care Management Progress Note CM was paged to arrange transportation for Cristofer from the ED, as he was being discharged. He requested a ride to the [facility] prior to going to the [facility], which is where he is currently residing. JAYSHREE coordinated a ride with [facility] and sent an authorization for payment. Cristofer's mother offered to pay for the ride, but [facility] would not accept outside payment. Cristofer's mother's name is Darling Neal ([phone]). JAYSHREE discussed community resources with Cristofer. He spoke to a recovery room nurse while at [facility]. Nancy has reached out to him recently with no success. JAYSHREE explained that Nancy can help him with insurance, and he agreed to reach out to them. Cristofer's questions and concerns were addressed at the time of the visit.
== END 2019-10-06 17:30 | disposition home or self-care (01) ==
PROVIDERS: Emergency Provider Registered Nurse Emergency
DX: F10.230 Alcohol dependence with withdrawal, uncomplicated (principal); R25.1 Tremor, unspecified; F41.9 Anxiety disorder, unspecified; R11.2 Nausea with vomiting, unspecified; R07.89 Other chest pain
CPT/HCPCS: 36415; 80053; 80307; 93005; 96365; 96366; 96375; 99284; 80320; 81003; 81015; 83735; 84484; 85025; 93010; J2060; J2405